=== PATIENT | female | born 1940 | race Caucasian/White ===

== ENCOUNTER 2022-03-24 14:45 | Emergency (ER) | payer MEDICARE ==
[~2022-03-24] VITALS: Ht 154.9 cm; Wt 65.0 kg
[~2022-03-24 14:45] MED LIST: AZIT250T PO; DIAZ5TAB PO
[2022-03-24] MEDS ORDERED: morphine 4 MG/ML inj SYRINge IM ONE ×2 (17:30→19:05)
[2022-03-24] MEDS ORDERED: ondansetron 4mg rapidly disintigrating tab PO ONE ×2 (17:30→19:05)
[2022-03-24] MEDS ORDERED: ONDA4TAB12 PO (18:55)
[2022-03-24] MEDS ORDERED: HYDR-3965 PO (18:55)
[2022-03-24 20:11] VITALS: BP 125/80
== END 2022-03-24 20:14 | disposition home or self-care (01) ==
LOC: ER 14:46
DX: M25.551 Pain in right hip (principal); J44.9 Chronic obstructive pulmonary disease, unspecified; W19.XXXA Unspecified fall, initial encounter; Y93.89 Activity, other specified; Y92.89 Other specified places as the place of occurrence of the external cause; Y99.8 Other external cause status
CPT/HCPCS: 72192; 73502; 96372; 99285; J2270

== ENCOUNTER 2022-04-19 16:06 | Emergency (ER) | payer MEDICARE ==
[~2022-04-19] VITALS: Ht 157.5 cm; Wt 72.0 kg
[~2022-04-19 16:06] MED LIST changes: +ONDA4TAB12 PO
[2022-04-19 16:20] VITALS: BP 125/72
[2022-04-19] MEDS ORDERED: HYDROcodone/acetaminophen 5mg/325mg tablet PO ONE ×2 (17:00→20:00)
[2022-04-19] MEDS ORDERED: ketorolac trometh. 30mg/ml inj. IV ONE (17:00)
[2022-04-19] MEDS ORDERED: HYDR-3965 PO (19:25)
== END 2022-04-19 20:21 | disposition home or self-care (01) ==
LOC: ER 16:07
DX: M54.50 Low back pain, unspecified (principal); J44.9 Chronic obstructive pulmonary disease, unspecified
CPT/HCPCS: 99283

== ENCOUNTER 2023-09-21 10:23 | Outpatient (CLI) | payer MEDICARE ==
[~2023-09-21 10:23] MED LIST changes: +ONDA-243 PO; -ONDA4TAB12 PO
[2023-09-21 11:25] VITALS: PULSE 79; RESP 16; O2SAT 93
== END 2023-09-21 23:59 | disposition home or self-care (01) ==
LOC: RT 10:23
PROVIDERS: ATTEND Nurse Practitioner Family
DX: J44.9 Chronic obstructive pulmonary disease, unspecified (principal); K52.9 Noninfective gastroenteritis and colitis, unspecified; J98.4 Other disorders of lung; J20.9 Acute bronchitis, unspecified; R05.9 Cough, unspecified; K21.9 Gastro-esophageal reflux disease without esophagitis; M25.561 Pain in right knee; M51.26 Other intervertebral disc displacement, lumbar region; A04.72 Enterocolitis due to Clostridium difficile, not specified as recurrent
CPT/HCPCS: 94060; 94727; 94729; 94760